=== PATIENT | male | born 1945 | race Caucasian/White ===

== ENCOUNTER 2019-08-29 07:30 | Emergency (ER) | payer MEDICARE, OTHER, SELFPAY ==
[2019-08-29 07:37] VITALS: BMI 22.6
--- NOTE | 2019-08-29 07:57 | ED.LOWEXIN ---
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 One of the beings in the [email or web address] project broke unexpectedly and large portion of macho fell on to his lower extremities with his right foot caught underneath the would in his left knee being hit by the would. Fortunately it was in soft dirt and he was able to self extricate but has significant pain and swelling in the right ankle. He is able to walk. He is noticing today that he is having more back pain without any radicular findings. Related Data Allergies Allergy/AdvReac Type Severity Reaction Status Date / Time No Known Drug Allergies Allergy Verified 08/29/19 07:37 Review of Systems Review of Systems Narrative: Pertinent positive and negative findings as per HPI Remainder of review of systems is otherwise unremarkable for Constitutional: Fevers, chills, weakness ENT: No sore throat, neck pain, ear pain CV: Chest pain, palpitations, dyspnea on exertion Respiratory: Cough, wheeze, dyspnea GI: Nausea, vomiting, diarrhea, change in bowel habits, black or bloody stools : Dysuria, hematuria, flank pain MS: Muscle weakness, numbness, joint swelling or warmth Skin: Rashes, nonhealing lesions Neuro: Syncope, dizziness, tingling Psych: Depression, anxiety, suicidal ideation Endocrine: Fatigue, heat or cold intolerance, very dry skin Heme: Easy bruising or bleeding Allergy: Seasonal rhinorrhea, itchy eyes Patient History Medical History Healthy adult (Acute) Surgical History H/O lumbosacral spine surgery (Acute) Exam Narrative Exam Narrative: General: Healthy appearing, in no acute distress. Able to give a complete and coherent history. Well-nourished well-developed HEENT: Moist mucous membranes, normal sclera with reactive pupils, Neck: supple Respiratory: Lungs are clear to auscultation, no wheezing no rales no rhonchi. Full and symmetrical air movement Cardiac: Regular rate and rhythm no murmurs no bruits Abdomen: Soft nontender good bowel tones, no flank pain Skin: Warm and dry, no rashes Spine, no bony point tenderness along the spine with palpation from C1 through the sacrum Neurologic: Grossly neurologically intact with no obvious asymmetries or abnormalities Psych: Cooperative, appropriate insight and affect Extremities: Minor contusions upper portion of knees bilaterally left slightly more than the right. Early bruising developing along the right lower extremity with significant bruising over the right foot and ankle. He does have full range of motion at the right foot and is neurovascularly intact. There is tenderness with inversion. Initial Vital Signs Initial Vital Signs: Vital Signs Pulse Rate 80 08/29/19 08:00 Respiratory Rate 19 08/29/19 08:00 Blood Pressure 126/73 08/29/19 08:00 Pulse Oximetry 97 08/29/19 08:00 Procedures [facility] [place] Procedure Name of Procedure: Indication: Splint was placed by under my direct supervision Exam post placement reveals appropriate splinting and neurovascularly intact Side (if applicable): right Location: Lower extremity Additional Comments: Splint placed by a nursing staff right short-leg posterior splint. Evaluated with slight adjustment by me to avoid abrasion to the medial aspect of the foot. He is neurovascularly in tact. Increased comfort with the splint in place. Course Orders Ordered: ED Orders 08/29/19 08:17 XR ankle RT min 3V Stat Discontinued Medications Acetaminophen (Tylenol) 325 mg PO NOW ONE Stop: 08/29/19 10:24 Ibuprofen (Advil) 800 mg PO NOW ONE Stop: 08/29/19 10:23 Ibuprofen (Advil) 400 mg PO NOW ONE Stop: 08/29/19 10:24 Vital Signs Vital signs: Vital Signs - 8 hr 08/29/19 08:00 08/29/19 09:00 Pulse Rate 80 65 Respiratory Rate 19 18 Blood Pressure [Right Arm] 126/73 113/64 Pulse Oximetry 97 99 MDM - Extremity Injury (Lower) Imaging Data Right ankle x-ray: Radiologist's Impression: IMPRESSION: Acute nondisplaced oblique fracture involving distal fibular shaft. Soft tissue swelling over ankle joint. Dictated by: Derick Cisse M.D. on 08/29/2019 at 8:37 MDM Narrative Medical decision making narrative: Right ankle x-ray, stable. Splinted and crutches given. Referral to orthopedics. Musculoskeletal low back strain patient has narcotic medications available at home from prior injuries that he did not take. When over safe use of these and appropriate follow-up for definitive fracture management. Discharge Plan Departure Patient Disposition: Home Clinical Impression: Ankle fracture Qualifiers: Encounter type: initial encounter Fracture type: closed Laterality: right Qualified Code(s): S82.891A - Other fracture of right lower leg, initial encounter for closed fracture Instructions: DI for Fracture Activity Restrictions/Additional Instructions: Thank you for coming in today You have an acute nondisplaced oblique fracture of the distal fibular shaft on the right side. You basically broke your ankle. Fortunately, this is a very stable fracture, it is high enough up the bone that I think it is going to heal nicely. You will need a cast and will need follow-up with the orthopedic surgeon for definitive care. Dr Alcocer is our surgeon on-call today. I have also given you are Health marketing operations coordinator line so that you can find a local primary care physician. I have put you in a splint and given the some crutches here in the emergency department Using 400 mg of ibuprofen (2 [id number] pills) and 1 Tylenol every 6 hours can be very helpful in controlling pain. Adding 5 mg of oxycodone that you have available at home to this combination for severe pain would be appropriate. Ice and elevation will also be helpful. I wish you the best Referrals: Mario Alcocer MD [Physician] -
[2019-08-29 08:00] VITALS: BP 126/73; PULSE 80; RESP 19; O2SAT 97
--- NOTE | 2019-08-29 08:17 | DI.RAD.S_ITS ---
PROCEDURE: XR ANKLE RT MIN 3V INDICATIONS: trauma TECHNIQUE: 3 views of the ankle were acquired. COMPARISON: None. FINDINGS: Bones: Acute oblique fracture through distal fibular shaft is seen with no significant displacement or angulation at fracture site. Fracture line is seen extending to lateral ankle mortise.. Ankle mortise is normally aligned. No suspicious bony lesions. Soft tissues: Soft tissue swelling over lateral malleolus is seen. No tibiotalar joint effusion. Achilles tendon appears normal. IMPRESSION: Acute nondisplaced oblique fracture involving distal fibular shaft. Soft tissue swelling over ankle joint. Dictated by: Derick Cisse M.D. on 08/29/2019 at 8:37 Approved by: Derick Cisse M.D. on 08/29/2019 at 8:38
[2019-08-29 09:00] VITALS: BP 113/64; PULSE 65; RESP 18; O2SAT 99
[2019-08-29] MEDS: IBUPROFEN 400 MG TABLET PO (10:25)
--- NOTE | 2019-08-29 10:34 | PC.NURSE ---
pt c/o right ankle pain and back pain. started after having an object fall on him yesterday causing him to fall to the ground. denies loc. ambulated into the eval room. slow and limping.
== END 2019-08-29 10:36 | disposition home or self-care (01) ==
PROVIDERS: Emergency Provider Emergency Medicine
DX: S82.891A Other fracture of right lower leg, initial encounter for closed fracture (principal); W22.8XXA Striking against or struck by other objects, initial encounter
CPT/HCPCS: 73610; 99283